=== PATIENT | male | born 1970 | race African-American/Black ===

== ENCOUNTER 2023-11-30 19:02 | Emergency (ER) | payer BC, OTHER, SELFPAY ==
[2023-11-30 19:04] VITALS: BP 132/80
[2023-11-30 19:21] LABS: % Basophils 0.4 % (0-2); % Eosinophils 1.9 % (0-6); % Immature Granulocytes 0.2 % (0-0.5); % Monocytes 9.4 % (1.7-9.3); % Neutrophils 68.1 % (42.2-75.2); Absolute Eosinophils 0.2 10^3/uL (0-0.7); Absolute Lymphocytes 1.9 10^3/uL (1.2-3.4); Absolute Monocytes 0.9 10^3/uL (0.1-0.6); Absolute Neutrophils 6.5 10^3/uL (1.4-6.5); Hematocrit 39.3 % (39.0-52.0); Hemoglobin 13.5 g/dL (13.0-18.0); Mean Corp Hgb Conc. 34.4 g/dL (33.0-37.0); Mean Corpuscular Hgb 25.5 pg (27.0-31.0); Mean Corpuscular Volume 74.3 fL (80.0-94.0); Mean Platelet Volume 9.4 fL (7.4-10.4); Nucleated Red Blood Cells % 0 % (-); Platelet Count 328 10^3/uL (130-400); Red Blood Cell Count 5.29 10^6/uL (4.70-6.10); Red Cell Dist. Width 13.2 % (11.5-14.5); White Blood Cell Count 9.5 10^3/uL (4.8-10.8)
[2023-11-30 19:34] LABS: Erythrocyte Sed Rate 25 mm/hour (0-20)
[2023-11-30 19:34] LABS: ALT (SGPT) 39 U/L (0-50); AST (SGOT) 31 U/L (17-59); Albumin 4.2 g/dl (3.5-5.0); Alkaline Phosphatase 82 U/L (38-126); Blood Urea Nitrogen 16 mg/dl (9-20); Calcium 9.8 mg/dl (8.4-10.2); Carbon Dioxide 26 mmol/L (22-30); Chloride 103 mmol/L (98-107); Glucose 133 mg/dl (70-99); Potassium 3.8 mmol/L (3.5-5.1); Sodium 140 mmol/L (135-145); Total Bilirubin 0.5 mg/dl (0.2-1.3); Total Protein 7.2 g/dl (6.3-8.2); eGFR > 60.00
--- NOTE | 2023-11-30 19:52 | ED.GENMED ---
History of Present Illness
General
Chief Complaint: Musculo-Skeletal Complaint
Time Seen by Provider: 11/30/23 19:39
History of Present Illness
History of Present Illness:
53-year-old male with history of diabetes presents to the emergency department for evaluation of nontraumatic left knee swelling developing over the past few days. History of similar several years ago and had an arthrocentesis performed with good
result. Has followed up with orthopedics in the past with no definitive long-term plan. No fevers or chills
Past History
Past History
ED Past Medical History: NIDDM
ED Past Surgical History: Other
Social History
Tobacco: Non-smoker
Alcohol: None
Drug: None
Personal:
Living: with family
Employment: Employed
Family History
Family History: CAD
Review of Systems
Review of Systems
Allergies reviewed?: Yes
All Other Systems: ROS reviewed and negative except as documented in HPI and ROS
Phy Exam
Physical Exam
Physical Exam:
GEN: Well appearing, NAD, WDWN
HEENT: Oral mucosa moist, no scleral icterus
Cardiac: Regular rate
Lung: No respiratory distress, no tachypnea
MSK: No gross deformity or injuries. Large left knee joint effusion
Skin: Good color, no pallor or jaundice, no rashes
Neuro: AO x3, moves all extremities freely
Psych: Calm, cooperative
Course
Orders/Labs/Results
Orders:
Orders
11/30/23 19:11
C-Reactive Protein Urgent
Complete Blood Count/With Diff Urgent
Sed Rate [Erythrocyte Sed Rate] Urgent
11/30/23 19:12
Comprehensive Metabolic Panel Urgent
11/30/23 19:52
Body Fluid Cell Count Urgent
What is the Body Fluid: joint
Comment: with DIFF
Body Fluid Crystals Urgent
What is the Body Fluid: joint
Fluid Culture with Gram Stain Urgent
EMILY Source: Joint Fluid
Specimen Description:
Abnormal Lab Results
11/30/23 11/30/23
19:11 19:12
MCV 74.3 L fL
(80.0-94.0)
MCH 25.5 L pg
(27.0-31.0)
Absolute Monos (auto) 0.9 H 10^3/uL
(0.1-0.6)
Lymphocytes % 20.0 L %
(20.5-51.1)
Monocytes % 9.4 H %
(1.7-9.3)
ESR 25 H mm/hour
(0-20)
Glucose 133 H mg/dl
(70-99)
C-Reactive Protein 65.00 H mg/L
(0.0-10.00)
11/30/23 19:11
11/30/23 19:12
Vital Signs
Initial and Last Documented VS:
Initial Vital Signs
Temp Pulse Resp BP Pulse Ox
98.6 F 74 20 132/80 98
11/30/23 19:04 11/30/23 19:04 11/30/23 19:04 11/30/23 19:04 11/30/23 19:04
Last Documented Vital Signs
Temp Pulse Resp BP Pulse Ox
98.6 F 74 20 132/80 98
11/30/23 19:04 11/30/23 19:04 11/30/23 19:04 11/30/23 19:04 11/30/23 19:04
MDM/Problems Addressed
MDM/Problems Addressed:
Under sterile technique the left knee was aspirated for 80 cc of punch colored synovial fluid, fluid sent to the lab for analysis. Procedure tolerated well by the patient. Low clinical suspicion for septic arthritis, will discharge pending lab
synovial analysis
*Critical Care Note
Total Time (30-74mins, 75-104mins- exclusive of procedures): Not Applicable
ED Attending Note
-
Portions of this chart may have been created with voice recognition software.� Occasional wrong word or��sound alike� substitutions may have occurred due to the inherent limitations of voice recognition software.
Discharge Plan
Departure
Patient Disposition: Home (Routine Discharge)
Date of Disposition: 11/30/23
Time of Disposition: 19:52
Patient with high blood pressure during this ER visit?: No
Discharge Problem:
Effusion of left knee
Instructions: Swollen Joints (DC)
Prescriptions:
No Action
Metformin HCl
500 mg PO BID
Glipizide
5 mg PO DAILY
Referrals:
Stef Stiles MD [Active] -
Activity Restrictions/Additional Instructions:
Keep the jacinto wrap on overnight to reduce re-accumulation of swelling
Follow up with Orthopedics
Interventions
Interventions:
*Risk Screen - Suicide Last Done: 11/30/23 19:04
*General Assessment Last Done: 11/30/23 19:04
Discharge Date and Time
Print Language: GERMAN
[2023-11-30 21:14] LABS: Body Fluid WBC 23590 /CUMM
[2023-11-30 21:15] LABS: Body Fluid Mononuclear 22.5 %; Body Fluid Polymorphonuclear 77.5 %
[2023-11-30 21:17] LABS: Body Fluid Second Tech CMC
== END 2023-11-30 20:15 | disposition home or self-care (01) ==
LOC: EMR 19:02
PROVIDERS: Physician Assistant; EMERGENCY PHYSICIAN Student in an Organized Health Care Education/Training Program; FAMILY PHYSICIAN Family Medicine
DX: M25.462 Effusion, left knee (principal); E11.9 Type 2 diabetes mellitus without complications
CPT/HCPCS: 99284; 20610; 80053; 85025; 85652; 86140; 87015; 87070; 87205; 89051; 89060

== ENCOUNTER 2024-10-26 05:21 | Emergency (ER) | payer BC, OTHER, SELFPAY ==
[2024-10-26 05:25] VITALS: BP 132/72
--- NOTE | 2024-10-26 06:14 | ED.GENMED ---
History of Present Illness
General
Chief Complaint: Musculo-Skeletal Complaint
Time Seen by Provider: 10/26/24 06:13
History of Present Illness
History of Present Illness:
PAST MEDICAL HISTORY AND REVIEW OF OLD RECORDS
- Patient has history of diabetes. I reviewed records, over the past several years, the patient has had several visits to the emergency department related to musculoskeletal pains.
Note:
CHIEF COMPLAINT(S)
Right elbow pain following weight lifting.
HISTORY OF PRESENT ILLNESS
The patient is a 54-year-old male who presented with pain predominantly located at the back of his right elbow, which has been aggravated following weightlifting activities. The patient noted the pain initially centered around the elbow,
occasionally radiating upward. He described experiencing significant discomfort despite taking imtw-bhk-dlvpuea ibuprofen (Motrin) throughout the day with no relief. This level of pain is uncharacteristic for him as he reports having a high pain
tolerance. He mentioned being in considerable pain upon arrival at the facility, describing it as incapacitating enough to require immediate attention. The patient noted being awake since 6:00 AM due to the discomfort. No recent narcotic use was
noted, and he is unfamiliar with taking narcotics.
PHYSICAL EXAM
General: Alert, no acute distress other than some discomfort to the right upper extremity with attempted movement.
Skin: Warm, dry.
Head: Normocephalic, atraumatic.
Neck: Supple, trachea midline.
Eye, Ears, Nose, and Mouth: Oral mucosa moist.
Cardiovascular: Normal peripheral perfusion, strong radial and ulnar pulses on the right.
Respiratory: Respirations are non-labored.
Gastrointestinal: Abdomen nondistended.
Back: Normal range of motion, normal alignment.
Musculoskeletal: Right elbow tender at the posterior aspect, no significant swelling noted; decreased active range of motion at right wrist and elbow, shoulder unaffected; evidenced calcification on X-ray at elbow tendon, suggestive of tendonitis.
Neurological: Alert and oriented to person, place, time, and situation; no focal neurological deficit observed.
Psychiatric: Cooperative, appropriate mood and affect.
PLAN
1. The patient was given an injection of Toradol for immediate pain relief.
2. A short course of Percocet was prescribed to manage pain over the next few days, with instructions to use it judiciously due to its potential for addiction.
3. Patient was advised to continue using ibuprofen (Motrin), possibly in combination with Percocet, to manage inflammation and pain.
4. Patient was advised to refrain from engaging in significant physical activity until symptoms improve.
5. Patient was advised to follow-up with an appointment specialist; a referral was provided.
6. A sling for the right arm was offered to reduce movement and provide comfort.
DIFFERENTIAL DIAGNOSIS
The Differential Diagnosis includes, in no particular order and is not limited to:
1. Right elbow tendonitis
2. Right elbow lateral epicondylitis
3. Right elbow bursitis
4. Right elbow strain or sprain
5. Osteoarthritis of the right elbow
6. Right elbow ligament injury
7. Ulnar nerve compression
8. Epicondylitis-related calcification
9. Stress fracture (less likely given X-ray findings)
10. Triceps muscle strain or tear
Disposition:
SUMMARY OF ENCOUNTER
The patient, a 54-year-old male, presented with non-traumatic, primary right elbow pain radiating to the right wrist, primarily after weight lifting. X-ray findings were unremarkable aside from slight calcification suggestive of tendonitis. The
patient had decreased active range of motion and significant pain, unalleviated by fkjo-yed-wmdmotw ibuprofen. He was given Toradol for immediate pain relief in the emergency department.
DISPOSITION
Discharge.
ASSESSMENT
Likely right elbow tendonitis.
EMERGENCY TREATMENTS ADMINISTERED
The patient received an injection of ketorolac (Toradol) for immediate pain relief.
PLAN
The patient was prescribed a short course of oxycodone and acetaminophen (Percocet) to manage pain over the next few days. He is to continue with NSAIDs like ibuprofen for additional management of inflammation and pain. A referral was given for
follow-up with an appointment specialist. The patient was also advised to refrain from significant physical activity until symptoms improve and was offered a cradle sling for comfort.
INDEPENDENT REVIEW OF LABS AND INTERPRETATION OF TESTS
My independent interpretation of the elbow X-ray is evidence of calcification at the elbow tendon, suggestive of tendonitis.
PATIENT EDUCATION AND COUNSELING
The patient was informed about his diagnosis, possible causes related to his activity, and the importance of refraining from weight lifting until further evaluation by an appointment specialist. He was advised about the potential for addiction with
narcotics and instructed on combining the use of Percocet judiciously with ibuprofen.
FOLLOW-UP INSTRUCTIONS
The patient was instructed to follow up with an appointment specialist at their earliest convenience.
MEDICATION RECONCILIATION
1. Ketorolac injection (Toradol) was administered in the emergency department for pain relief.
2. Oxycodone and acetaminophen (Percocet) were prescribed for short-term pain management.
3. Continue using ibuprofen for inflammation and pain.
MEDICAL DECISION MAKING
-Complexity of Data Reviewed: Chronic conditions affecting care with the following list considered for differential diagnosis:
1. Right elbow tendonitis
2. Right elbow lateral epicondylitis
3. Right elbow bursitis
4. Right elbow strain or sprain
5. Osteoarthritis of the right elbow
6. Right elbow ligament injury
7. Ulnar nerve compression
8. Epicondylitis-related calcification
9. Stress fracture (less likely given X-ray findings)
10. Triceps muscle strain or tear
-Data:
Category 1
My independent interpretation of the elbow X-ray shows calcification suggestive of tendonitis.
-Risk:
Prescription medication was prescribed.
Consideration of Admission/Observation: Escalation of care including admission/observation was considered given the complexity and risk of the patients presenting complaint, exam findings, and their underlying comorbidities. However, ultimately I
feel the patient is safe for outpatient management with close follow-up. Reasoning: Work-up is reassuring, does not reveal any acute life/organ-threatening processes, patients symptoms are well controlled upon reevaluation, re-examination is
reassuring, vitals are stable, patient is agreeable with discharge, and reliable for follow-up.
DIAGNOSIS
1. Right elbow tendonitis (ICD-10: M77.1)
RADIOLOGY
- I personally viewed x-rays of the right elbow, forearm, and wrist; some calcified tendinosis noted at the right elbow
Past History
Past History
ED Past Medical History: NIDDM
ED Past Surgical History: Other
Social History
Tobacco: Non-smoker
Alcohol: None
Drug: None
Personal:
Living: with family
Employment: Employed
Family History
Family History: CAD
Phy Exam
Physical Exam
Physical Exam:
See HPI
Course
Orders/Labs/Results
Orders:
Orders
10/26/24 05:35
CR Elbow - Right Min 2 View Urgent
Comment: lifting weights yesterday
Reason For Exam: pain and cannot move right elbow
CR Forearm - Right 2 View Urgent
Comment:
Reason For Exam: pain in right elbow, forearm, wrist
Wrist, Right 2 Views CR [CR Wrist - Right Min 2 Views] Urgent
Comment:
Reason For Exam: pain in right elbow, forearm, wrist
10/26/24 06:32
Sling Right-Treatment ONCE
Ketorolac [Toradol] 30 mg IM NOW STA
Vital Signs
Initial and Last Documented VS:
Initial Vital Signs
Temp Pulse BP Pulse Ox
37.0 C 65 132/72 100
10/26/24 05:25 10/26/24 05:25 10/26/24 05:25 10/26/24 05:25
Last Documented Vital Signs
Temp Pulse BP Pulse Ox
37.0 C 65 132/72 100
10/26/24 05:25 10/26/24 05:25 10/26/24 05:25 10/26/24 06:14
*Pulse Oximetry
SaO2: 100
Oxygen Mode of Delivery: Room air
Patient hypoxic: no
*Critical Care Note
Total Time (30-74mins, 75-104mins- exclusive of procedures): Not Applicable
ED Attending Note
-
Portions of this chart may have been created with voice recognition software.� Occasional wrong word or��sound alike� substitutions may have occurred due to the inherent limitations of voice recognition software.
Discharge Plan
Departure
Patient Disposition: Home (Routine Discharge)
Date of Disposition: 10/26/24
Time of Disposition: 06:30
Patient with high blood pressure during this ER visit?: Yes
Discharge Problem:
Right elbow tendonitis
Instructions: Tendinopathy (DC), How to Use a Shoulder Sling
Prescriptions:
New
oxycodone-acetaminophen [Percocet] 5-325 mg tablet
1 - 2 tab PO Q8H PRN (Reason: Pain) Qty: 12 0RF
No Action
Metformin HCl
500 mg PO BID
Glipizide
5 mg PO DAILY
Referrals:
Francisco Maher MD [Family Provider, Family Practice]
Stef Stiles MD [Active, Orthopedics]
Activity Restrictions/Additional Instructions:
We gave you a dose of Toradol today. I recommend 3-4 wqqj-qlb-dgloafe ibuprofen (Motrin) every 8 hours with food for a few days. Return here if worse. I am also sending a prescription for Percocet to your pharmacy to help with more severe pain.
Try to limit the use of Percocet as it does have high addiction potential. If you take the Percocet, consider taking something like MiraLAX to help prevent constipation.
Interventions
Interventions:
*Risk Screen - Suicide Last Done: 10/26/24 05:32
*Neglect/Abuse Screening Last Done: 10/26/24 05:32
*ED- Fall Risk Assessment Last Done: 10/26/24 05:32
*ED COVID-19 Vaccine History Last Done: 10/26/24 05:32
ED-Musculoskeletal Assessment Last Done: 10/26/24 06:18
Discharge Date and Time
Print Language: IRISH
[2024-10-26] MEDS: TORADOL 30 MG IM (06:57)
== END 2024-10-26 07:05 | disposition home or self-care (01) ==
LOC: EMR 05:21
PROVIDERS: EMERGENCY PHYSICIAN Emergency Medicine; FAMILY PHYSICIAN Family Medicine
DX: M77.9 Enthesopathy, unspecified (principal); E11.9 Type 2 diabetes mellitus without complications; Z79.84 Long term (current) use of oral hypoglycemic drugs
CPT/HCPCS: 99284; 96372; 73070; 73090; 73100

== ENCOUNTER 2024-12-01 06:19 | Emergency (ER) | payer BC, OTHER, SELFPAY ==
[2024-12-01 06:29] VITALS: BP 121/79
[2024-12-01 06:40] VITALS: BMI 26.1
--- NOTE | 2024-12-01 06:44 | PTCARENOTE ---
patient reports chest pain centered around his pectoral muscles x 2 days, states the pain has now spread to his back causing him to have difficulty ambulating and moving around as he usually does. patient denies SOB, no signs of respiratory distress
noted. patient denies cardiac history.
--- NOTE | 2024-12-01 07:02 | ED.GENMED ---
ED Provider Triage
<Kenroy Coronel MD, Resident - Last Filed: 12/01/24 09:51>
-
Patient seen by provider in Triage?: Seen in Triage
History of Present Illness
<Kenroy Coronel MD, Resident - Last Filed: 12/01/24 09:51>
General
Chief Complaint: Chest Pain
Source: patient
Exam Limitations: none
Time Seen by Provider: 12/01/24 06:32
History of Present Illness
History of Present Illness:
Patient is a 54-year-old male who presents for sudden sternal pain 2 days ago, thought he pulled a muscle, progressively has gotten worse to the point where he could not get out of bed today, rated as moderate to severe in intensity, radiated to
back and neck, aggravated on movement relieved on rest. Associated with shortness of breath. No headache, no vision changes, no vomiting, no diarrhea, has a history of diabetes. No family history of myocardial infarction, acute coronary syndrome,
CVA. No smoking no drinking no drugs.
Past History
<Kenroy Coronel MD, Resident - Last Filed: 12/01/24 09:51>
Past History
ED Past Medical History: NIDDM
ED Past Surgical History: Other
Social History
Tobacco: Non-smoker
Alcohol: None
Drug: None
Personal:
Living: with family
Employment: Employed
Family History
Family History: CAD
Review of Systems
<Kenroy Coronel MD, Resident - Last Filed: 12/01/24 09:51>
Review of Systems
All Other Systems: ROS reviewed and negative except as documented in HPI and ROS
Constitutional: Denies fever, weight loss or fatigue
Respiratory: Denies cough
Cardiac: Reports chest pain
ABD/GI: Denies abdominal pain
Musculoskeletal: Reports muscle pain, muscle stiffness and neck pain; Denies joint pain or joint swelling
Neurological: Reports no symptoms
Phy Exam
<Kenroy Coronel MD, Resident - Last Filed: 12/01/24 09:51>
General Physical Exam
General Presentation: well appearing and no apparent distress
General age: appears stated age
General Skin: warm and dry
General Habitus: normal
General Mental: alert
Pulmonary Exam
Pulmonary Exam: lungs clear and no respiratory distress
Gastrointestinal Exam
Gastrointestinal Exam: normal bowel sounds, non tender, soft, no organomegaly, no pulsatile mass and non distended
Neurological Exam
Neurological Exam: alert, oriented x3, no motor deficits, normal reflexs, no sensory deficits and speech normal
Musculoskeletal Exam
Musculoskeletal Exam: back pain and other (Paravertebral muscle tenderness, Decreased ROM on back flexion/extension/ rotation)
Scores
<Kenroy Coronel MD, Resident - Last Filed: 12/01/24 09:51>
Heart Score for Chest Pain Patients
STEMI patient?: No
History: Slightly or Non-Suspicious
ECG: Normal
Age: >45 - <65 years
Risk Factors: 1 or 2 Risk Factors
Troponin: </= Normal Limit
Heart Score for Chest Pain Patients: 2
Heart Score Risk: 2.5% MACE over next 6 weeks
Course
<Kenroy Coronel MD, Resident - Last Filed: 12/01/24 09:51>
Orders/Labs/Results
Orders:
Orders
12/01/24 06:20
EKG [Electrocardiogram (*1)] Urgent
Reason for Study: Chest Pain
EKG- Treatment ONCE
12/01/24 07:06
Ketorolac [Toradol] 15 mg IV NOW STA
12/01/24 07:43
Complete Blood Count/With Diff Urgent
Comprehensive Metabolic Panel Urgent
Troponin I Urgent
12/01/24 08:36
Prednisone [Deltasone] 50 mg PO NOW STA
Abnormal Lab Results
12/01/24
07:43
Hgb 12.2 L g/dL
(13.0-18.0)
Hct 37.4 L %
(39.0-52.0)
MCV 78.9 L fL
(80.0-94.0)
MCH 25.7 L pg
(27.0-31.0)
MCHC 32.6 L g/dL
(33.0-37.0)
Absolute Neuts (auto) 7.9 H 10^3/uL
(1.4-6.5)
Absolute Lymphs (auto) 1.1 L 10^3/uL
(1.2-3.4)
Neutrophils % 81.1 H %
(42.2-75.2)
Lymphocytes % 11.6 L %
(20.5-51.1)
Glucose 109 H mg/dl
(70-99)
12/01/24 07:43
12/01/24 07:43
Vital Signs
Initial and Last Documented VS:
Initial Vital Signs
Temp Pulse Resp BP Pulse Ox
98.9 F 96 16 121/79 99
12/01/24 06:29 12/01/24 06:29 12/01/24 06:29 12/01/24 06:29 12/01/24 06:29
Last Documented Vital Signs
Temp Pulse Resp BP Pulse Ox
97.6 F 89 14 140/83 98
12/01/24 08:51 12/01/24 08:51 12/01/24 08:51 12/01/24 08:51 12/01/24 08:51
<Galina Coto, DO - Last Filed: 12/01/24 08:37>
Orders/Labs/Results
Orders:
Orders
12/01/24 06:20
EKG [Electrocardiogram (*1)] Urgent
Reason for Study: Chest Pain
EKG- Treatment ONCE
12/01/24 07:06
Ketorolac [Toradol] 15 mg IV NOW STA
12/01/24 07:43
Complete Blood Count/With Diff Urgent
Comprehensive Metabolic Panel Urgent
Troponin I Urgent
12/01/24 08:36
Prednisone [Deltasone] 50 mg PO NOW STA
Abnormal Lab Results
12/01/24
07:43
Hgb 12.2 L g/dL
(13.0-18.0)
Hct 37.4 L %
(39.0-52.0)
MCV 78.9 L fL
(80.0-94.0)
MCH 25.7 L pg
(27.0-31.0)
MCHC 32.6 L g/dL
(33.0-37.0)
Absolute Neuts (auto) 7.9 H 10^3/uL
(1.4-6.5)
Absolute Lymphs (auto) 1.1 L 10^3/uL
(1.2-3.4)
Neutrophils % 81.1 H %
(42.2-75.2)
Lymphocytes % 11.6 L %
(20.5-51.1)
Glucose 109 H mg/dl
(70-99)
12/01/24 07:43
12/01/24 07:43
Vital Signs
Initial and Last Documented VS:
Initial Vital Signs
Temp Pulse Resp BP Pulse Ox
98.9 F 96 16 121/79 99
12/01/24 06:29 12/01/24 06:29 12/01/24 06:29 12/01/24 06:29 12/01/24 06:29
Last Documented Vital Signs
Temp Pulse Resp BP Pulse Ox
97.6 F 89 14 140/83 98
12/01/24 08:51 12/01/24 08:51 12/01/24 08:51 12/01/24 08:51 12/01/24 08:51
<Kenroy Coronel MD, Resident - Last Filed: 12/01/24 09:51>
MDM/Problems Addressed
Differential Diagnosis Includes:
ACS, GERD, Musculoskeletal strain, PE, pericarditis
MDM/Problems Addressed:
54 year old male with 2 day history of chest pain radiating to back and neck . Paravertebral tenderness on exam and decreased range of motion of back in all planes on physical exam.Vitals stable and patient is afebrile.
- EKG unremarkable
- Troponin normal
- CMP and CBC unremarkable
- Ordered Toradol 15 mg IV for patients back pain
- Will discharge patient with cyclobenzprine, prednisone, and ibuprofen for musculoskeltal strain with instructions to f/u with pcp in 1 week and rest.
<Kenroy Coronel MD, Resident - Last Filed: 12/01/24 09:51>
*Pulse Oximetry
SaO2: 99
Patient hypoxic: no
*Critical Care Note
Total Time (30-74mins, 75-104mins- exclusive of procedures): Not Applicable
<Galina Coto, DO - Last Filed: 12/01/24 08:37>
*EKG
Interpreted by ED Provider?: Yes
EKG Intrepretation Date: 12/01/24
EKG Intrepretation Time: 07:20
Interpretation: normal
Comparison EKG: no changes (08/20/19)
Heart Rate: 97
Rate: normal
Rhythm: sinus
[place]: normal axis
Interval: normal interval
QRS Pattern: normal QRS
Ischemia: no ischemia
ED Attending Note
<Kenroy Coronel MD, Resident - Last Filed: 12/01/24 09:51>
-
Portions of this chart may have been created with voice recognition software.� Occasional wrong word or��sound alike� substitutions may have occurred due to the inherent limitations of voice recognition software.
<Galinamichela Coto DO - Last Filed: 12/01/24 08:37>
ED Attending Note
Patient seen and examined by attending physician: Yes
I performed the substantive portion of visit, reviewed & personally made and approve the management plan that is documented in note by myself or ANSHUL.: Yes
I performed a history and physical exam of patient and discussed management with resident, I reviewed resident's note and agree with documented findings and plan of care.: Yes
ED Attending Note:
54-year-old male with history of diabetes presenting to the emergency department for back and chest pain. Patient reports symptoms started over the weekend. He went to the gym on Saturday and the next day started to have substernal chest pain and
lower back pain. Does note that he was doing chest exercises at the gym. Denies any direct trauma. Denies any known history of cardiac issues. Pain in the chest is dull and constant. Pain is worse with any type of movement. He has tried Advil
and Tylenol at home. Denies cough or fever. Denies any radiation of pain. Denies any weakness or numbness to his legs. Vital signs are normal
On exam patient is resting comfortably, no acute distress or discomfort. Benign cardiac and pulmonary exam. EKG obtained on arrival, nonischemic and unchanged from prior. Unremarkable cardiac and pulmonary exam. On examination of the back, mild
hypertonicity and tenderness to the right thoracic paraspinal musculature. Patient is very uncomfortable with movements and pain is reproduced with flexion and extension of the back. Ultimately suspect musculoskeletal quality to patient's pain.
Patient however does have some cardiac risk factors so we will screen further laboratory analysis occluding troponin. No midline spinal tenderness to the back, no report of any direct trauma without concern for spinal fracture. Range of motion of
the lower extremities intact, sensation intact. No red flag symptoms. No indication for advanced imaging. Will administer Toradol for pain.
08:30 -patient's labs are unremarkable. Patient low risk by heart score. Patient is still reporting some back pain. Continue to suspect muscular component to pain. Remains hemodynamically stable and feel stable for discharge with outpatient
supportive therapy. Did discuss possible use of steroids. Patient notes that his sugar is usually well-controlled. Will start on a course of steroids, however advised during showers. Also advised high-dose Profen and muscle relaxers as needed.
Return precautions discussed and patient verbalized understanding
Discharge Plan
Departure
Patient Disposition: Home (Routine Discharge)
Date of Disposition: 12/01/24
Time of Disposition: 08:37
Patient with high blood pressure during this ER visit?: No
Condition: Good
Discharge Problem:
Back pain, thoracic, Chest wall pain
Instructions: Chest pain (DC), Back exercises, Low back pain - ED (DC)
Prescriptions:
New
prednisone 20 mg tablet
20 mg PO BID 4 Days Qty: 8 0RF
cyclobenzaprine 10 mg tablet
10 mg PO TIDPRN PRN (Reason: muscle spasm) 5 Days Qty: 15 0RF
ibuprofen 600 mg tablet
600 mg PO Q8H PRN (Reason: Pain) Qty: 20 0RF
No Action
Metformin HCl
500 mg PO BID
Glipizide
5 mg PO DAILY
oxycodone-acetaminophen [Percocet] 5-325 mg tablet
1 - 2 tab PO Q8H PRN (Reason: Pain) Qty: 12 0RF
Referrals:
Francisco Maher MD [Family Provider, Family Practice]
Activity Restrictions/Additional Instructions:
You were seen in the emergency department for chest and back pain
You were suspected to have muscular strain. Please take the prescriptions as provided. He had reassuring laboratory analysis, EKG and vital signs in the emergency department.
Please follow-up closely with your primary care physician.
Return to the emergency department for any worsening of your symptoms, or any development of chest pain, difficulty breathing, abdominal pain with persistent vomiting and inability to tolerate food or liquid by mouth (concern for dehydration),
weakness, headache or confusion, fever greater than 100.4, or any additional symptoms that are concerning to you.
Thank you for choosing [facility].
Interventions
Interventions:
*Risk Screen - Suicide Last Done: 12/01/24 06:23
*General Assessment Last Done: 12/01/24 06:41
*Neglect/Abuse Screening Last Done: 12/01/24 06:41
*ED- Fall Risk Assessment Last Done: 12/01/24 06:39
*ED COVID-19 Vaccine History Last Done: 12/01/24 06:41
*ED Influenza Vaccine History Last Done: 12/01/24 06:41
*Nursing Disposition Last Done: 12/01/24 08:52
ED- Cardiac Assessment Last Done: 12/01/24 07:40
Discharge Date and Time
Discharge Date/Time: 12/01/24 08:59
Print Language: ALGERIAN
[2024-12-01 07:29] VITALS: BP 144/90
[2024-12-01] MEDS: TORADOL 15 MG IV (07:36)
[2024-12-01 07:53] LABS: Hematocrit 37.4 % (39.0-52.0); Hemoglobin 12.2 g/dL (13.0-18.0); Mean Corp Hgb Conc. 32.6 g/dL (33.0-37.0); Mean Corpuscular Volume 78.9 fL (80.0-94.0); Nucleated Red Blood Cells % 0 % (-); Platelet Count 359 10^3/uL (130-400); Red Cell Dist. Width 14.0 % (11.5-14.5)
[2024-12-01 08:00] VITALS: BP 140/83
[2024-12-01 08:05] LABS: ALT (SGPT) 24 U/L (0-50); AST (SGOT) 19 U/L (17-59); Albumin 4.1 g/dl (3.5-5.0); Alkaline Phosphatase 71 U/L (38-126); Blood Urea Nitrogen 10 mg/dl (9-20); Calcium 9.7 mg/dl (8.4-10.2); Carbon Dioxide 26 mmol/L (22-30); Chloride 105 mmol/L (98-107); Estimated Creatinine Clearance 110 ml/min; Glucose 109 mg/dl (70-99); Potassium 3.8 mmol/L (3.5-5.1); Sodium 140 mmol/L (135-145); Total Protein 7.4 g/dl (6.3-8.2); eGFR > 60.00
[2024-12-01 08:16] LABS: Troponin I < 0.012 ng/ml
[2024-12-01 08:51] VITALS: BP 140/83
[2024-12-01] MEDS: DELTASONE 50 MG PO (08:53)
== END 2024-12-01 08:59 | disposition home or self-care (01) ==
LOC: EMR 06:19
PROVIDERS: EMERGENCY PHYSICIAN Student in an Organized Health Care Education/Training Program; FAMILY PHYSICIAN Family Medicine
DX: M54.6 Pain in thoracic spine (principal); R07.89 Other chest pain; R06.02 Shortness of breath; E11.9 Type 2 diabetes mellitus without complications; Z82.49 Family history of ischemic heart disease and other diseases of the circulatory system
CPT/HCPCS: 99283; 80053; 84484; 85025; 93005